=== PATIENT | male | born 1945 | race Caucasian/White ===

== ENCOUNTER 2017-04-23 14:48 | Outpatient (CLI) | payer MEDICARE ==
[~2017-04-23 14:48] MED LIST: Iopamidol 370 76% 100 ML VIAL ONE
--- NOTE | 2017-04-23 17:56 | CT ---
CT ABDOMEN AND PELVIS WITHOUT CONTRAST CTA OF THE ABDOMEN AND PELVIS WITH IV CONTRAST AND 3D POSTPROCESSIN04/13/17 HISTORY: Aneurysm of other specified arteries. FINDINGS: Comparison is made with the CTA abdomen dated 11/06/[address] [facility]. 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 Peripheral calcification and internal thrombosis is again seen. There is a sma ll focus of contrast in the proximal aspect of this aneurysm which is also stable. No other aneurysm s are seen. There are vascular calcifications. There is good flow in the remainder of the celiac axi s, SMA, GUILLERMO and renal arteries. Hyperenhancing foci in both lobes of the liver are stable. No calcified gallstones are seen. No free air, free fluid or lymphadenopathy is noted in the abdomen or pelvis. Right sided renal cysts are a gain seen. Tiny nonobstructing left renal calculus is noted. The prostate is mildly enlarged. There is colonic diverticulosis without evidence of diverticulitis. The pancreas and adrenal glands are un remarkable. There are fat containing bilateral inguinal hernia, left larger than the right. There ar e degenerative changes in the lumbar spine. The spleen is enlarged measuring 16 cm in CC dimension b ut stable since the last study. A small cyst is seen arising from the inferior pole of the left kidn ey. IMPRESSION: 1. Stable celiac axis aneurysm since 11/06/16. 2. Colonic diverticulosis. 3. Splenomegaly. 4. Renal cyst. 1. POS: [facility]
== END 2017-04-23 14:49 | disposition home or self-care (01) ==
LOC: CT 14:48
PROVIDERS: ATTEND Thoracic Surgery (Cardiothoracic Vascular Surgery)
DX: I72.8 Aneurysm of other specified arteries (principal); K57.30 Diverticulosis of large intestine without perforation or abscess without bleeding
CPT/HCPCS: 74174